=== PATIENT | male | born 1980 | race Caucasian/White ===

== ENCOUNTER 2019-07-10 15:31 | Emergency (ER) | payer OTHER ==
[2019-07-10 15:59] VITALS: BP 106/67; PULSE 87; O2SAT 100
[2019-07-10] MEDS: XYLOCAINE 1% HCL 20 ML MDV IJ ONE (16:27)
--- NOTE | 2019-07-10 16:34 | ERPHSYRPT ---
- History of Present Illness Time Seen by Provider: 07/10/19 15:45 Source: patient Exam Limitations: no limitations Patient Subjective Stated Complaint: states fell from ladder and left thumb struck a saw blade causing a laceration. Triage Nursing Assessment: ambulated to room per self. skin w/d, color pale. has 4cm flap lac to left thumb with minimal bleeding. Physician History: Patient is a 39-year-old male who presents to our ED for evaluation and treatment of a left thumb laceration. Patient fell off of a ladder and injured his left thumb on the sawblade. Patient declined imaging studies. Patient able to move all digits with minimal discomfort. Patient states he hurt his knee however he declined any x-ray for his knee. Patient is ambulatory with a normal gait. Injury occurred approximately an hour prior to arrival. Pain described as an ache that is well localized. No radiation. Pain worsened with movement and palpation. Pain improved with rest. Patient voices no other complaints. Patient states his tetanus is up-to-date. Occurred: just prior to arrival Method of Injury: fell Quality: aching, burning Severity of Pain-Max: moderate Severity of Pain-Current: moderate Extremities Pain Location: thumb: left (Skin avulsion with residual flap at the left thumb.) Associated Symptoms: No back pain, No chest pain, No fever, No nausea, No neck pain, No vomiting Allergies/Adverse Reactions: Penicillins Allergy (Intermediate, Verified 07/10/19 16:25) Rash Home Medications: No Reportable Medications [No Reported Medications] 07/10/19 [History] Hx Tetanus, Diphtheria Vaccination/Date Given: Yes Hx Influenza Vaccination/Date Given: No Hx Pneumococcal Vaccination/Date Given: No - Review of Systems Constitutional: No Fever, No Chills Eyes: No Symptoms Ears, Nose, & Throat: No Symptoms Respiratory: No Symptoms, No Cough, No Dyspnea Cardiac: No Symptoms, No Chest Pain, No Edema, No Syncope Abdominal/Gastrointestinal: No Symptoms, No Abdominal Pain, No Nausea, No Vomiting, No Diarrhea Genitourinary Symptoms: No Symptoms, No Dysuria Musculoskeletal: No Symptoms, No Back Pain, No Neck Pain Skin: No Symptoms, No Rash Neurological: No Symptoms, No Dizziness, No Focal Weakness, No Sensory Changes Psychological: No Symptoms Endocrine: No Symptoms Immunological/Allergic: No Symptoms All Other Systems: Reviewed and Negative - Past Medical History Pertinent Past Medical History: No - Past Surgical History Past Surgical History: No - Social History Smoking Status: Never smoker Exposure to second hand smoke: No Drug Use: none Patient Lives Alone: No - Nursing Vital Signs Nursing Vital Signs: Initial Vital Signs Temperature 97.6 F 07/10/19 15:37 Pulse Rate 87 07/10/19 15:37 Respiratory Rate 16 07/10/19 15:37 Blood Pressure 106/67 07/10/19 15:37 O2 Sat by Pulse Oximetry 100 07/10/19 15:37 Pain Scale Pain Intensity 2 - Physical Exam General Appearance: alert Eyes, Ears, Nose, Throat Exam: moist mucous membranes Neck Exam: non-tender, supple Cardiovascular/Respiratory Exam: chest non-tender, normal breath sounds, regular rate/rhythm, no respiratory distress Abdominal Exam: non-tender, No guarding Back Exam: normal inspection, No vertebral tenderness Shoulder Exam: normal inspection Elbow/Forearm Exam: normal inspection Wrist Exam: normal inspection Hand Exam: normal ROM, laceration (There is a bucket-handle type skin avulsion of the lateral aspect of the left thumb. No subungual hematoma. No active bleeding. Extremity otherwise neurovascular intact. Compartments are soft. Cap refill less than 2 seconds.) Neuro/Tendon Exam: normal sensation, normal motor functions Mental Status Exam: alert, oriented x 3, cooperative Skin Exam: normal color, warm, dry SpO2 Interpretation: normal SpO2: 100 O2 Delivery: Room Air Procedures - Laceration/Wound Repair Left Distal Finger Wound Location: Left, upper arm Wound Length (cm): 2 Wound's Depth, Shape: superficial Wound Explored: no foreign body noted Irrigated: Yes Hibiclens Prep: Yes Anesthesia: 1% Lidocaine Volume Anesthetic (ccs): 3 Wound Debrided: minimal Wound Repaired With: sutures Suture Size/Type: 5-0, ethilon Number of Sutures: 6 Layer Closure?: No Sterile Dressing Applied?: Yes Type of Splint Applied: Bulky dressin which immobilizes laceration Sling Applied?: No Ordered Tests: Medication Summary Discontinued Medications Generic Name Dose Route Start Last Admin Trade Name Freq PRN Reason Stop Dose Admin Lidocaine HCl 5 ml 07/10/19 16:14 07/10/19 16:27 Xylocaine 1% Hcl 20 Ml Mdv IJ 07/10/19 16:15 5 ml STAT ONE Administration - Progress Progress: improved - Departure Departure Disposition: Home Clinical Impression: Thumb laceration, Suture of skin wound Condition: Stable Critical Care Time: No Referrals: JACKIE WILDER MD [ACTIVE STAFF] - Additional Instructions: LACERATION CARE 1. Do not use peroxide, merthiolate, alcohol, or betadine. 2. Keep wound clean and dry. 3. Change dressing if it becomes wet or soiled. 4. If you must work, wear protective covering. 5. You may return to the emergency department or see your family physician for suture removal. 6. See your family physician or return to the emergency department for any of the following signs or symptoms: A. Redness B. Swelling C. Discolored drainage D. Red streaks E. Elevated temperature F. Other signs of infectionDischarge/Care Plan ISIDRO DAMON was seen on 07/10/19 in the Emergency Room. The patient was counseled regarding Diagnosis,Lab results, Imaging studies, need for follow up and when to return to the Emergency Room. Prescriptions given: Discharge Note I have spoken with the patient and/or caregivers. I have explained the patient' s condition, diagnosis and treatment plan based on the information available to me at this time. I have answered the patient's and/or caregiver's questions and addressed any concerns. The patient and/or caregivers have as good understanding of the patient's diagnosis, condition and treatment plan as can be expected at this point. The vital signs have been stable. The patient's condition is stable and appropriate for discharge from the emergency department. The patient will pursue further outpatient evaluation with the primary care physician or other designated or consulting physician as outlined in the discharge instructions. The patient and/or caregivers are agreeable to this plan of care and follow-up instructions have been explained in detail. The patient and/or caregivers have received these instruction. The patient/and or caregivers are aware that any significant change in condition or worsening of symptoms should prompt an immediate return to this or the closest emergency department or call 911.
== END 2019-07-10 16:42 | disposition home or self-care (01) ==
LOC: ED 15:31
DX: S61.012A Laceration without foreign body of left thumb without damage to nail, initial encounter (principal); W11.XXXA Fall on and from ladder, initial encounter; W22.8XXA Striking against or struck by other objects, initial encounter; Y93.89 Activity, other specified; Y92.9 Unspecified place or not applicable; W26.8XXA Contact with other sharp object(s), not elsewhere classified, initial encounter
CPT/HCPCS: 12001; 99283